=== PATIENT | female | born 1995 | race African-American/Black ===

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

== ENCOUNTER 2017-06-11 21:02 | Emergency (ER) | payer OTHER ==
[~2017-06-11 21:02] MED LIST changes: -CIPR-9 PO; +OXYC1CAP PO
[2017-06-11 21:07] VITALS: BP 124/85; PULSE 82; RESP 18; TEMP 98.1; O2SAT 100
== END 2017-06-11 21:16 | disposition left against medical advice (07) ==
LOC: NED 21:02
DX: Z00.8 Encounter for other general examination (principal); Z53.21 Procedure and treatment not carried out due to patient leaving prior to being seen by health care provider
CPT/HCPCS: 99281